=== PATIENT | female | born 1975 | race Asian ===

== ENCOUNTER 2024-05-18 08:41 | Outpatient (AMB) | payer BC, SELFPAY ==
--- NOTE | 2024-05-18 08:44 | MHC.PC.OV ---
Vital Signs 05/18/24 09:01 Height 5 ft 3.78 in Weight 173 lb 8 oz BMI 30.0 BP 110/84 Blood Pressure Location Rt brachial Position Sitting Respiration 14 Pulse 83 Pulse Source Pulse Oximeter Temp 99.5 F Temp Source Oral Pulse Oximetry (%) 98 Oxygen Delivery Method Room Air Intake Visit Reasons: [employer] WORKER-Requesting Physical Exam Intake Note: New patient visit Is last menstrual period known: Yes Last menstrual period: 05/30/24 Allergies amoxicillin Allergy (Severe, Verified 05/18/24 09:06) Anaphylaxis Penicillins Allergy (Severe, Verified 05/18/24 08:57) Anaphylaxis bupropion [From Wellbutrin] Allergy (Unknown, Verified 05/18/24 09:14) Unknown Medication List - Last Reconciled 05/18/24 by Andree Orellana PA-C albuterol sulfate 90 mcg/actuation inhalation [cellimedo inner glow .] escitalopram oxalate 10 mg PO DAILY levocetirizine 5 mg PO QPM Tobacco use date assessed: 05/18/24 Dental Screening Dental Screen Date: 05/18/24 Did you have a dental visit in the last 12 months?: Yes Did you have a dental problem in the last 6 months where you did not have access to dental care?: No Was dental information given to patient?: Patient has dentist HPI B[employer] WORKER-Requesting Physical Exam HPI Details Patient is a 49-year-old female with a significant past medical history of alopecia, generalized anxiety disorder, cold sores and asthma presenting today to [facility] She was last seen by myself at [facility] on 08/19/2023. Psych: Anxiety has been well-controlled on Lexapro 10 mg. She has been significantly cutting back on drinking. Feeling well with this. Does not want help. States that she will go a couple days without drinking and has only 1-2 drinks a night otherwise. CV: Blood pressure today in the office is 110/84. No chest pain, shortness a breath or palpitations. PULM: Her asthma has been well-controlled with Singulair, Xyzal, and albuterol as needed. She used to be on Flovent Mammo: 09/2023- wnl Pap: 09/2023- wnl Colonoscopy: fall- due in 2032 [facility] Medical History (Updated 05/18/24 @ 09:23 by Andree Orellana PA-C) Urachal cyst Moderate asthma without complication H/O food anaphylaxis Generalized anxiety disorder Dermatosis Alopecia Surgical History (Updated 05/18/24 @ 09:09 by Vanesa Toussaint CMA) H/O tooth extraction Family History (Updated 05/18/24 @ 09:11 by Vanesa Toussaint CMA) Other Family history not known due to adoption Social History (Updated 05/18/24 @ 09:09 by Vanesa Toussaint CMA) Housing: House Patient Tobacco Use Status: Never used Tobacco e-Cigarette/Vaping Use: Never Used Use of substances other than those prescribed or required for medical reasons: No service: No Current occupational status: employed Current occupation: business development consultant Current occupational exposures/hazards: No Cognitive needs: No Hearing needs: No Vision needs: Yes (contacts ) Female Reproductive History Menstrual Date of last menstrual period: 05/30/24 Questionnaire PHQ-9 Over the last 2 weeks, how often have you been bothered by any of the following problems? 1. Little interest or pleasure in doing things: not at all 2. Feeling down, depressed, or hopeless: several days 3. Trouble falling or staying asleep, or sleeping too much: several days 4. Feeling tired or having little energy: several days 5. Poor appetite or overeating: not at all 6. Feeling bad about yourself - or that you are a failure or have let yourself or your family down: not at all 7. Trouble concentrating on things, such as reading the newspaper or watching television: not at all 8. Moving or speaking so slowly that other people could have noticed. Or the opposite - being so fidgety or restless that you have been moving around a lot more than usual: not at all 9. Thoughts that you would be better off or of hurting yourself in some way: not at all Total score: 3 Depression Screening Interpretation: Positive Depression Screening Follow-up: Existing condition and In treatment Depression Screening Done: Yes 25629 - PHQ-9 Billing: Yes Source: Developed by Drs. Demarco Cuenca, Savannah Palm, Shay Gray and colleagues, with an educational cheryl from [employer]. Thrive Questionnaire Date Thrive assessed: 05/18/24 I am a: Patient What is your living situation today?: I have a steady place to live Within the past 12 months, did the food you bought not last and you didn't have the money to get more?: Never true Within the past 12 months, did you worry whether your food would run out before you got money to buy more?: Never true Do you have trouble paying for medicines?: No Do you have trouble getting transportation to medical appointments?: No Do you have trouble paying your heating and electricity bill?: No Do you have trouble taking care of your child, family member or friend?: No Do you have trouble with day-to-day activities such as bathing, preparing meals, shopping, managing finances, etc.?: No Are you currently unemployed and looking for a job?: No Are you interested in more education?: No Please select the resources that you would like help with: None Currently or been in a relationship where the following occur: No concerns reported THRIVE Score: 0 AUDIT C Alcohol Use Questionnaire (AUDIT-C) 1. How often do you have a drink containing alcohol?: 4 or more times a week 2. How many drinks containing alcohol do you have on a typical day when you are drinking?: 3 or 4 3. How often do you have six or more drinks on one occasion?: Less than monthly Total Score: 6 Score Reviewed/Action Taken: Yes ROBLES-7 AMB Questionnaire ROBLES-7 Date ROBLES - 7 assessed: 05/18/24 Feeling nervous, anxious, or on edge: 1 = Several days Not being able to stop or control worryin = Not at all Worrying too much about different things: 0 = Not at all Trouble relaxin = Not at all Being so restless that it is hard to sit still: 0 = Not at all Becoming easily annoyed or irritable: 1 = Several days Feeling afraid as if something awful might happen: 0 = Not at all Total ROBLES-7 score (0-4 normal; 5-9 mild; 10-14 moderate; 15-21 severe): 2 Source: Developed by Drs. Demarco Cuenca, Savannah Palm, Shay Gray and colleagues, with an educational cheryl from [employer]. ROBLES-7 Assessment Billing ROBLES-7 Assessment Tool: ROBLES-7 Assessment 52083 Physical exam (Primary Care) Vital Signs: Last Vital Signs Temp 99.5 F 05/18/24 09:01 Pulse 83 05/18/24 09:01 Resp 14 05/18/24 09:01 BP 110/84 05/18/24 09:01 Pulse Ox 98 05/18/24 09:01 Oxygen Delivery Method Room Air 05/18/24 09:01 BMI result Body Mass Index 30.0 Tobacco/Smoking Status: Tobacco use Status Tobacco use date assessed 05/18/24 05/18/24 09:06 Patient Tobacco Use Status Never used Tobacco 05/18/24 09:06 e-Cigarette/Vaping Use Never Used 05/18/24 09:06 PHQ-9: PHQ-9 Score PHQ-9: Total score 3 05/18/24 09:14 Depression Screening Interpretation: Positive Depression Screening Follow-up: Existing condition and In treatment Thrive Assessment: Date of Thrive Assessment Date Thrive assessed 05/18/24 05/18/24 09:14 Currently or been in a relationship where the following occur: No concerns reported Const Orientation/consciousness: patient oriented x3 HENMT Ears: hearing grossly normal bilaterally General nose exam: No nasal polyps present Face and sinus: Yes sinuses nontender Mouth: Normal oral and palatal mucosa present Eyes Pupils: Equal, round and reactive pupils present EOM: EOMs intact bilaterally Neck Neck: Yes full ROM and Yes no lymphadenopathy Thyroid: Thyroid normal Lymphatic: no lymphadenopathy noted Chest Chest palpation & inspection: normal inspection of the chest Resp Auscultation: clear to auscultation bilaterally Cardio Rate: regular rate Rhythm: regular rhythm Heart sounds: S1 normal heart sound present and S2 normal heart sound present Peripheral pulses: Peripheral pulses 2+ throughout GI Other: Soft, nontender Inspection: Yes normal to inspection Palpation (GI): Soft to palpation and Other GI palpation findings present (nontender, no cva tenderness) Auscultation: normoactive bowel sounds Rectal Exam - Female: deferred General: Yes no CVA tenderness Back/Spine/Pelvis Other: Nontender Back: no CVA tenderness Skin General skin exam: no rashes or lesions noted Neuro General: patient oriented x3, gait normal and no focal motor deficits Cranial nerves: Yes Equal, round and reactive pupils present Motor exam (neuro): 5/5 motor strength present throughout Sensory Exam: double simultaneous stimulation for sensation normal Coordination: [id number]-ic-[id number] test normal and Romberg test negative Extrem General: Yes normal to inspection and Yes full ROM Psych Affect: normal affect Attitude: cooperative Thought process: Normal thought process present Thought content: Normal thought content present Insight: Good insight present (Psych) Judgement: Good judgement present (Psych) Assessment and Plan Assessment & Plan (1) Routine general medical examination at a health care facility: Code(s): Z00.00 - Encounter for general adult medical examination without abnormal findings Plan: Health maintenance reviewed. Labs ordered today. We will follow up pending test results. She will get records from [facility]. (2) Generalized anxiety disorder: Code(s): F41.1 - Generalized anxiety disorder Plan: Well-controlled with Lexapro. Orders: Orders Comprehensive [place]. Panel Fast Today F41.1 - Generalized anxiety disorder, Z00.00 - Encounter for general adult medical examination without abnormal findings Complete Blood Count Auto Diff Today F41.1 - Generalized anxiety disorder, Z00.00 - Encounter for general adult medical examination without abnormal findings Lipid Panel Today F41.1 - Generalized anxiety disorder, Z00.00 - Encounter for general adult medical examination without abnormal findings TSH reflex Free T4 Today F41.1 - Generalized anxiety disorder, Z00.00 - Encounter for general adult medical examination without abnormal findings UA CC w/rflx Micro + Cult Today F41.1 - Generalized anxiety disorder, Z00.00 - Encounter for general adult medical examination without abnormal findings Medications: New escitalopram oxalate 10 mg PO DAILY 90 tabs 3RF Coding Level of Care Code Est Pt Prev Care 40-64y(66788) Diagnoses Routine general medical examination at a health care facility Z00.00 Generalized anxiety disorder F41.1 Additional Codes ROBLES-7 Assessment Billing - ROBLES-7 Assessment Tool: ROBLES-7 Assessment 12824 ([id number])
[2024-05-18 09:01] VITALS: BP 110/84; PULSE 83; RESP 14; TEMP 37.5; O2SAT 98
== END 2024-05-18 09:32 | disposition home or self-care (01) ==
PROVIDERS: PCP Physician Assistant; Visit Provider Physician Assistant
DX: Z00.00 Encounter for general adult medical examination without abnormal findings (principal); F41.1 Generalized anxiety disorder
CPT/HCPCS: 99396

== ENCOUNTER 2024-05-19 07:47 | Outpatient (REF) | payer BC, SELFPAY ==
[2024-05-19 11:18] LABS: MANUAL DIFF FLAG NO
[2024-05-19 11:30] LABS: Appearance Urine Turbid; Color Urine Yellow; Glucose Urine UA Negative (Negative); Leukocyte Esterase Urine Negative (Negative); Nitrite Urine Negative (Negative); PH 5.5 (5.0-9.0); Specific Gravity - Urine 1.025 (1.005-1.025); Urine Blood Negative (Negative); Urine Ketones Negative (Negative); Urine Protein Trace mg/dL (Neg-Trace)
[2024-05-19 11:36] LABS: Basophils Absolute Auto 0.1 X10*3/uL (0.0-0.2); Basophils Percent Auto 0.8 % (0-2); Eosinophils Absolute Auto 0.4 X10*3/uL (0.0-0.4); Eosinophils Percent Auto 5.5 % (0-4); Hematocrit 44.1 % (37.0-47.0); Hemoglobin 15.1 g/dl (12.0-16.0); Imm Gran Abs Auto 0.02 X10*3/uL (0.00-0.03); Imm Gran Pct Auto 0.3 % (0.0-0.4); Lymphocytes Absolute Auto 1.6 X10*3/uL (1.2-4.9); Lymphocytes Percent Auto 21.1 % (20-40); Mean Corpuscular HGB Conc 34.2 g/dl (31.0-35.0); Mean Corpuscular Hemoglobin 30.3 pg (27.0-33.0); Mean Corpuscular Volume 88.4 fL (80.0-98.0); Mean Platelet Volume 11.3 fL (9.4-12.3); Monocytes Absolute Auto 0.4 X10*3/uL (0.1-1.2); Monocytes Percent Auto 5.5 % (2-11); Neutrophils Percent Auto 66.8 % (45-73); Platelet Count 249 X10*3/uL (160-400); Red Blood Count 4.99 X10*6/uL (4.20-5.50); Red Cell Distribution Width 12.1 % (11.0-16.0); White Blood Count 7.4 X10*3/uL (4.8-10.8)
[2024-05-19 12:07] LABS: Alanine Aminotransferase 12 U/L (0-31); Albumin Level 4.2 g/dL (3.5-5.0); Alkaline Phosphatase 63 U/L (39-117); Anion Gap 12 (12-20); Aspartate Amino Transferase 19 U/L (5-31); Bilirubin Total 0.6 mg/dL (0.0-1.0); Blood Urea Nitrogen 11 mg/dL (9-16); Calcium 9.2 mg/dL (8.4-10.2); Carbon Dioxide 22 mmol/L (22-29); Chloride 106 mmol/L (96-108); Cholesterol 163 mg/dL (<200); Estimated Glomerular Filt Rate > 60; Glucose Fasting 83 mg/dL (60-99); HDL Cholesterol 54 mg/dL (>40); LDL Cholesterol Calculated 66 mg/dL (<100); Potassium 3.8 mmol/L (3.3-5.1); Sodium 136 mmol/L (135-145); Total Protein 7.3 g/dL (6.5-8.0); Triglycerides 216 mg/dL (<150)
[2024-05-19 12:10] LABS: TSH reflex Free T4 3.19 uIU/mL (0.32-4.0)
== END 2024-05-19 07:48 | disposition home or self-care (01) ==
LOC: HO.WFDLDS 07:47
PROVIDERS: Visit Provider Physician Assistant
DX: Z00.00 Encounter for general adult medical examination without abnormal findings (principal); F41.1 Generalized anxiety disorder
CPT/HCPCS: 36415; 80053; 80061; 81003; 84443; 85025

== ENCOUNTER 2025-05-31 14:27 | Outpatient (AMB) | payer BC, SELFPAY ==
[2025-05-31 14:29] VITALS: BP 114/82; PULSE 88; RESP 12; TEMP 36.8; O2SAT 99; BMI 30.6
--- NOTE | 2025-05-31 14:29 | MHC.PC.OV ---
Vital Signs 05/31/25 14:29 Height 5 ft 3.78 in Weight 177 lb BMI 30.6 BP 114/82 Blood Pressure Location Lt brachial Position Sitting Respiration 12 Pulse 88 Pulse Source Pulse Oximeter Temp 98.3 F Temp Source Oral Pulse Oximetry (%) 99 Oxygen Delivery Method Room Air Intake Visit Reasons: ANNUAL PE Intake Note: Physical Transportation Agent Required: No Allergies amoxicillin Allergy (Severe, Verified 05/31/25 14:31) Anaphylaxis Penicillins Allergy (Severe, Verified 05/31/25 14:31) Anaphylaxis bupropion (From Wellbutrin) Allergy (Unknown, Verified 05/31/25 14:31) Unknown Tobacco use date assessed: 05/31/25 Dental Screening Dental Screen Date: 05/31/25 Did you have a dental visit in the last 12 months?: Yes Did you have a dental problem in the last 6 months where you did not have access to dental care?: No Was dental information given to patient?: Patient has dentist HPI ANNUAL PE HPI Details Patient is a 50-year-old female with a significant past medical history of alopecia, generalized anxiety disorder, cold sores and asthma presenting today for a physical exam. Psych: Anxiety has been well-controlled on Lexapro 10 mg. She is feeling well with this. CV: Blood pressure today in the office is 114/82. No chest pain, shortness a breath or palpitations. GI: She does get diarrhea with eating any dairy products. She states that she would be interested in seeing Allergy and immunology when her old dry paste supervisor opens up his new facility. She says that she may need a referral. She is interested to see if she is allergic to dairy as lactose pills do not appear to be effective. She does not have diarrhea when she does not eat dairy. She is up-to-date on her colonoscopy. There was no blood in her stool or weight loss. This has been a longstanding issue. PULM: Her asthma has been well-controlled with Singulair, Xyzal, and albuterol as needed. She used to be on Flovent Mammo: 12/02/2024- wnl Pap: 09/2023- wnl Colonoscopy: fall- due in 2032 [facility] Medical History (Updated 05/31/25 @ 14:58 by Andree Orellana PA-C) Urachal cyst Moderate asthma without complication H/O food anaphylaxis Generalized anxiety disorder Dermatosis Alopecia Surgical History (Updated 05/18/24 @ 09:09 by Vanesa Toussaint CMA) H/O tooth extraction Family History (Updated 05/18/24 @ 09:11 by Vanesa Toussaint CMA) Other Family history not known due to adoption Social History (Updated 05/18/24 @ 09:09 by Vanesa Toussaint CMA) Housing: House Patient Tobacco Use Status: Never used Tobacco e-Cigarette/Vaping Use: Never Used service: No Current occupational status: employed Current occupation: mobile sales consultant Current occupational exposures/hazards: No Cognitive needs: No Hearing needs: No Vision needs: Yes (contacts ) Questionnaire PHQ-9 Over the last 2 weeks, how often have you been bothered by any of the following problems? 1. Little interest or pleasure in doing things: not at all 2. Feeling down, depressed, or hopeless: several days 3. Trouble falling or staying asleep, or sleeping too much: several days 4. Feeling tired or having little energy: more than half the days 5. Poor appetite or overeating: several days 6. Feeling bad about yourself - or that you are a failure or have let yourself or your family down: not at all 7. Trouble concentrating on things, such as reading the newspaper or watching television: not at all 8. Moving or speaking so slowly that other people could have noticed. Or the opposite - being so fidgety or restless that you have been moving around a lot more than usual: not at all 9. Thoughts that you would be better off or of hurting yourself in some way: not at all Total score: 5 Source: Developed by Drs. Demarco Cuenca, Savannah Palm, Shay Gray and colleagues, with an educational cheryl from [employer]. Thrive Questionnaire Date Thrive assessed: 05/31/25 I am a: Patient What is your living situation today?: I have a steady place to live Within the past 12 months, did the food you bought not last and you didn't have the money to get more?: Never true Within the past 12 months, did you worry whether your food would run out before you got money to buy more?: Never true Do you have trouble paying for medicines?: No Do you have trouble getting transportation to medical appointments?: No Do you have trouble paying your heating and electricity bill?: No Do you have trouble taking care of your child, family member or friend?: No Do you have trouble with day-to-day activities such as bathing, preparing meals, shopping, managing finances, etc.?: No Are you currently unemployed and looking for a job?: No Are you interested in more education?: No Please select the resources that you would like help with: None Currently or been in a relationship where the following occur: No concerns reported THRIVE Score: 0 AUDIT C Alcohol Use Questionnaire (AUDIT-C) 1. How often do you have a drink containing alcohol?: 4 or more times a week 2. How many drinks containing alcohol do you have on a typical day when you are drinking?: 3 or 4 3. How often do you have six or more drinks on one occasion?: Monthly Total Score: 7 ROBLES-7 AMB Questionnaire ROBLES-7 Date ROBLES - 7 assessed: 05/18/24 Feeling nervous, anxious, or on edge: 1 = Several days Not being able to stop or control worryin = Not at all Worrying too much about different things: 1 = Several days Trouble relaxin = Several days Being so restless that it is hard to sit still: 1 = Several days Becoming easily annoyed or irritable: 1 = Several days Feeling afraid as if something awful might happen: 0 = Not at all Total ROBLES-7 score (0-4 normal; 5-9 mild; 10-14 moderate; 15-21 severe): 5 Source: Developed by Drs. Demarco Cuenca, Savannah Palm, Shay Gray and colleagues, with an educational cheryl from [employer]. Physical exam (Primary Care) Vital Signs: Last Vital Signs Temp 98.3 F 05/31/25 14:29 Pulse 88 05/31/25 14:29 Resp 12 05/31/25 14:29 BP 114/82 05/31/25 14:29 Pulse Ox 99 05/31/25 14:29 Oxygen Delivery Method Room Air 05/31/25 14:29 BMI result Body Mass Index 30.6 Tobacco/Smoking Status: Tobacco use Status Tobacco use date assessed 05/31/25 05/31/25 14:34 Patient Tobacco Use Status Never used Tobacco 05/31/25 14:34 e-Cigarette/Vaping Use Never Used 05/31/25 14:34 PHQ-9: PHQ-9 Score PHQ-9: Total score 5 05/31/25 14:41 Thrive Assessment: Date of Thrive Assessment Date Thrive assessed 05/31/25 05/31/25 14:34 Currently or been in a relationship where the following occur: No concerns reported Const Orientation/consciousness: patient oriented x3 HENMT Ears: hearing grossly normal bilaterally and TM's normal bilaterally General nose exam: No nasal polyps present Face and sinus: Yes sinuses nontender Mouth: Normal oral and palatal mucosa present Eyes Pupils: Equal, round and reactive pupils present EOM: EOMs intact bilaterally Neck Neck: Yes full ROM and Yes no lymphadenopathy Thyroid: Thyroid normal Chest Chest palpation & inspection: normal inspection of the chest Resp Auscultation: clear to auscultation bilaterally Cardio Rate: regular rate Rhythm: regular rhythm Heart sounds: S1 normal heart sound present and S2 normal heart sound present Peripheral pulses: Peripheral pulses 2+ throughout GI Other: Soft, nontender Auscultation: normal bowel sounds Rectal Exam - Female: deferred General: Yes no CVA tenderness Back/Spine/Pelvis Other: Nontender Back: no CVA tenderness Skin General skin exam: no rashes or lesions noted Neuro General: patient oriented x3, gait normal, CN's II-XI intact bilaterally and deep tendon reflexes 2+ bilaterally Cranial nerves: Yes Equal, round and reactive pupils present Motor exam (neuro): 5/5 motor strength present throughout Sensory Exam: double simultaneous stimulation for sensation normal Coordination: [id number] test normal and Romberg test negative Extrem General: Yes normal to inspection and Yes full ROM Psych Affect: normal affect Attitude: cooperative Thought process: Normal thought process present Thought content: Normal thought content present Insight: Good insight present (Psych) Judgement: Good judgement present (Psych) Coding Level of Care Code Est Pt Prev Care 40-64y(71893) Diagnoses Encounter for routine history and physical examination Z00.00 Diarrhea R19.7 Assessment & Plan Assessment & Plan (1) Encounter for routine history and physical examination: Code(s): Z00.00 - Encounter for general adult medical examination without abnormal findings Plan: Health maintenance reviewed. Labs ordered (2) Diarrhea: Code(s): R19.7 - Diarrhea, unspecified Category: Medical Plan: As above. She will let me know if anything worsens or changes. Advised to avoid dairy. She will contact me when she wants to see the dry paste supervisor. Orders: Orders Hemoglobin A1c 05/31/25 F41.1 - Generalized anxiety disorder, R73.01 - Impaired fasting glucose, Z00.00 - Encounter for general adult medical examination without abnormal findings UA CC w/rflx Micro + Cult 05/31/25 F41.1 - Generalized anxiety disorder, R30.0 - Dysuria, Z00.00 - Encounter for general adult medical examination without abnormal findings Microalbumin, Random (w Creat) 05/31/25 F4.1 - Generalized anxiety disorder, Z00.00 - Encounter for general adult medical examination without abnormal findings Vitamin B12 and Folate 05/31/25 F4.1 - Generalized anxiety disorder, Z00.00 - Encounter for general adult medical examination without abnormal findings Basic Metabolic Panel 05/31/25 F4.1 - Generalized anxiety disorder, Z00.00 - Encounter for general adult medical examination without abnormal findings Complete Blood Count Auto Diff 05/31/25 F41.1 - Generalized anxiety disorder, Z00.00 - Encounter for general adult medical examination without abnormal findings Lipid Panel 05/31/25 F41.1 - Generalized anxiety disorder, Z00.00 - Encounter for general adult medical examination without abnormal findings Liver Panel 05/31/25 F4.1 - Generalized anxiety disorder, Z00.00 - Encounter for general adult medical examination without abnormal findings TSH reflex Free T4 05/31/25 F4.1 - Generalized anxiety disorder, Z00.00 - Encounter for general adult medical examination without abnormal findings Medications: Refilled escitalopram oxalate 10 mg PO DAILY 90 tabs 3RF
--- OUTSIDE RECORDS SUMMARY | 2025-05-31 18:13 | XMS_ITS | Encounter Summary ---
Author Organization [facility] Address [address] [place] [address] Care Team Providers Care Software Test And Validation Engineer Name Role Phone Patricia Mederos MD Primary Care Provider [phone] Encounter Details Date Type Department Care Team (Late st Contact Info) Description 07/16/2017 Scanned Document [facility] [address] [facility] [address] [place] [address] Provider, Generic Social History Tobacco Use Types Packs/Day Years Used Date Smoking Tobacco: Never Alcohol Use Standard Drinks/Week Comments Yes 0 (1 standard drink = 0.6 oz pur e alcohol) social use Comments No Sex and Gender Information Value Date Recorded Sex Assigned at Not on file Legal Sex Female 12:49 AM EDT Gender Identity Not on file Sexual Orientation Not on file Occupation Industry Job Start Date Job End Date [employer] Not on file Not on file Not on file documented as of this encounter Plan of Treatment Not on file documented as of this encounter Visit Diagnoses Not on filedocumented in this encounter Care Teams Software Test And Validation Engineer Relationship Specialty Start Date End Date Patricia Mederos MD [address] [place] [address] [address] [place], [place] [id number] PCP - General 05/28/15 03/20/19 documented as of this encounter
--- OUTSIDE RECORDS SUMMARY | 2025-05-31 18:13 | XMS_ITS | Encounter Summary ---
Author Organization [facility] Address [address] [place] [address] Care Team Providers Care Forensic Accountant Name Role Phone Patricia Mederos MD Primary Care Provider [phone] Encounter Details Date Type Department Care Team ([facility] st Contact Info) Description 07/23/2018 Scanned Document [facility] [address] [facility] [address] [place] [address] Provider, Generic Social History Tobacco Use Types Packs/Day Years Used Date Smoking Tobacco: Never Smokeless Tobacco: Never Alcohol Use Standard Drinks/Week Comments Yes 0 (1 standard drink = 0.6 oz pur e alcohol) social use Comments No Sex and Gender Information Value Date Recorded Sex Assigned at Not on file Legal Sex Female 12:49 AM EDT Gender Identity Not on file Sexual Orientation Not on file Occupation Industry Job Start Date Job End Date [employer] Not on file Not on file Not on file documented as of this encounter Plan of Treatment Not on file documented as of this encounter Procedures Procedure Name Priority Date/Time Associated Diagnosis Comments IMAGING BREAST/BX/MAMMO 07/23/2018 documented in this encounter Results * IMAGING BREAST/BX/MAMMO (07/23/2018) Anatomical Region Laterality Modality Other Narrative 07/23/2018 Ordered by an unspecified provider. us Generic Provider IMG LEGACY PROCEDURES Edited Re sult - Final documented in this encounter Visit Diagnoses Not on filedocumented in this encounter Care Teams Forensic Accountant Relationship Specialty Start Date End Date Patricia Mederos MD [address] [facility] [address] [place] [address] [phone] PCP - General 05/28/15 03/20/19 documented as of this encounter
--- OUTSIDE RECORDS SUMMARY | 2025-05-31 18:13 | XMS_ITS | Encounter Summary ---
Author Organization [facility] Address [address] [place] [address] Care Team Providers Care Oliving Machine Operator Name Role Phone Patricia Mederos MD Primary Care Provider [phone] Encounter Details Date Type Department Care Team (Late st Contact Info) Description 02/10/[address] [facility] 10 100 [facility] 203 [place] [address] Provider, External, [address] [place] [address] Social History Tobacco Use Types Packs/Day Years [...] Industry Job Start Date Job End Date [employer] Not on file Not on file Not on file documented as of this encounter Plan of Treatment Not on file documented as of this encounter Visit Diagnoses Not on filedocumented in this encounter Care Teams Oliving Machine Operator Relationship Specialty Start Date End Date Patricia Mederos MD 100 [facility] [address] [place] [address] PCP - General 05/28/15 03/20/19 documented as of this encounter
--- OUTSIDE RECORDS SUMMARY | 2025-05-31 18:13 | XMS_ITS | Encounter Summary ---
Author Organization [facility] Address [address] [place] [address] Care Team Providers Care Internet Security Specialist Name Role Phone Patricia Mederos MD Primary Care Provider [phone] Encounter Details Date Type Department Care Team ([facility] st Contact Info) Description 07/23/2018 Scanned Document [facility] [address] [facility] [address] [place] [address] Provider, Generic Social History Tobacco [...] Start Date Job End Date [employer] Not on file Not on file Not [...] on filedocumented in this encounter Care Teams Internet Security Specialist Relationship Specialty Start Date End Date Patricia Mederos MD 100 [facility] [address] [place] [phone] PCP - General 05/28/15 03/20/19 documented as of this encounter
--- OUTSIDE RECORDS SUMMARY | 2025-05-31 18:13 | XMS_ITS | Clinical Summary ---
Author Organization [facility] Address [address] [place] [address] Care Team Providers Care Lock Tender Chief Operator Name Role Phone Unavailable Primary Care Provider Unavailabl e Allergies Active Allergy Reactions Criticality Noted Date Comments Other Unknown/Patient and Family Unable to Define Medium 11/09/2015 [place] nuts Penicillins Unknown/Patient and Family Unable to Define Medium 11/09/2015 Medications hydrocortisone 1 % cream Apply topically 2 (two) times a day. Active cholecalciferol (VITAMIN D3) 1000 UNITS tablet Take 2,000 Units by mouth daily. Active multivitamin (THERAGRAN) Tab Take 1 tablet by mouth daily. Active cetirizine (ZyrTEC) 10 MG tablet Take 10 mg by mouth daily. Active albuterol (PROAIR RESPICLICK) 108 (90 BASE) MCG/ACT inhaler Inhale 1 puff 4 times daily (every 6 hours) as needed. Active FLUoxetine (PROzac) 20 MG capsuleIndicati ons:Anxiety Take 1 capsule (20 mg total) by mouth daily. 30 capsule 3 8 Active EPINEPHrine 0.3 mg/0.3 mL IJ auto-injectionI ndications:Josh rgic reaction, subsequent encounter Inject 0.3 mL (0.3 mg total) into the shoulder, thigh, or buttocks once as needed for allergic reaction. 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 Resolved Problems Problem Noted Date Diagnosed Date Resolved Date Pain in soft tissues of limb 12/26/2014 07/14/2016 Low back pain 12/26/2014 07/14/2016 Immunizations Immunization Administration Dates Next Due TD Preservative Free Tdap 07/16/2017 Social History Tobacco Use Types Packs/Day Years [...] Industry Job Start Date Job End Date [employer] Not on file Not on file Not on file Last Filed Vital Signs Vital Sign Reading Time Taken Comments Blood Pressure 116/80 07/30/2018 2:31 PM EST Pulse 56 07/30/2018 2:31 PM EST Temperature 37 C (98.6 F) 01/08/2018 3:33 PM EDT Respiratory Rate 12 07/30/2018 2:31 PM EST Oxygen Saturation 99% 07/30/2018 2:31 PM EST Inhaled Oxygen Concentration - - Weight 68.9 kg (152 lb) 07/30/2018 2:31 PM EST Height 162.6 cm (5' 4 ) 07/30/2018 2:31 PM EST Body Mass Index 26.09 07/30/2018 2:31 PM EST Plan of Treatment Health Maintenance Due Date Last Done Comments Hepatitis C Virus Screening 1977 HIV Screening 1990 Hepatitis B Vaccines (1 of 3 - 19+ 3-dose series) 1996 Pneumococcal Vaccine: Pediat karri (0-5 Years) and At-Risk Patients (6 to 49 Years) (1 of 2 - PCV) 1996 Pap Smear (Ages 21-65) 1998 Mammogram 07/23/2020 07/23/2018, 05/2018, 05/01/2017, Additional history exists Colonoscopy 2022 Influenza Vaccine 04/14/2025 COVID-19 Vaccine ( - 2023-2 5 season) 2025 DTaP/Tdap/Td Vaccines (2 - T d or Tdap) 07/16/2027 07/16/2017, Procedures Procedure Name Priority Date/Time Associated Diagnosis Comments IMAGING BREAST/BX/MAMMO 07/23/2018 from Last 3 Months or Most Recently Relevant to Health Maintenance Results * IMAGING BREAST/BX/MAMMO (07/23/2018) Anatomical Region Laterality Modality Other Narrative 07/23/2018 Ordered by an unspecified provider. us Generic Provider IMG LEGACY PROCEDURES Edited Re sult - Final from Last 3 Months or Most Recently Relevant to Health Maintenance [facility]
--- OUTSIDE RECORDS SUMMARY | 2025-05-31 18:13 | XMS_ITS | Encounter Summary ---
Author Organization [facility] Address [address] [place] [address] Care Team Providers Care Regional Director Name Role Phone Patricia Mederos MD Primary Care Provider [phone] Encounter Details Date Type Department Care Team (Late st Contact Info) Description 05/01/2017 Scanned Document [facility] [address] [place] [address] Provider, Generic Social History Tobacco Use [...] Industry Job Start Date Job End Date [facility] Not on file Not on file Not on file documented as of this encounter Plan of Treatment Not on file documented as of this encounter Procedures Procedure Name Priority Date/Time Associated Diagnosis Comments IMAGING BREAST/BX/MAMMO 05/01/2017 IMAGING BREAST/BX/MAMMO 05/01/2017 documented in this encounter Results * IMAGING BREAST/BX/MAMMO (05/01/2017) Anatomical Region Laterality Modality Other Narrative 05/01/2017 Ordered by an unspecified provider. us Generic Provider IMG LEGACY PROCEDURES Edited Re sult - Final * IMAGING BREAST/BX/MAMMO (05/01/2017) Anatomical Region Laterality Modality Other Narrative 05/01/2017 Ordered by an unspecified provider. us Generic Provider IMG LEGACY PROCEDURES Edited Re sult - Final documented in this encounter Visit Diagnoses Not on filedocumented in this encounter Care Teams Regional Director Relationship Specialty Start Date End Date Patricia Mederos MD 100 [facility] 203 [place] [address] PCP - General 05/28/15 03/20/19 documented as of this encounter
--- OUTSIDE RECORDS SUMMARY | 2025-05-31 18:13 | XMS_ITS | Encounter Summary ---
Author Organization [facility] Address [address] [place] [address] Care Team Providers Care Rn X Ray Name Role Phone Patricia Mederos MD Primary Care Provider [phone] Encounter Details Date Type Department Care Team (Late st Contact Info) Description 03/08/2014 Scanned Document [address] [address] Provider, Generic Social History Tobacco Use Types Packs/Day Years Used Date Smoking Tobacco: Never Assessed Comments Unknown Sex and Gender Information Value Date Recorded Sex Assigned at Not on file Legal Sex Female 12:49 AM EDT Gender Identity Not on file Sexual Orientation Not on file documented as of this encounter Plan of Treatment Not on file documented as of this encounter Procedures Procedure Name Priority Date/Time Associated Diagnosis Comments ULTRASOUND EXTERNAL RESULT 03/08/2014 documented in this encounter Results * ULTRASOUND EXTERNAL RESULT (03/08/2014) Anatomical Region Laterality Modality Ultrasound Narrative 07/22/2016 9:33 AM EST Ordered by an unspecified provider. us Generic Provider IMG US ORDERABLES Final Result documented in this encounter Visit Diagnoses Not on filedocumented in this encounter Care Teams Rn X Ray Relationship Specialty Start Date End Date Patricia Mederso MD [address] [place] [address] [address] [place] [address] PCP - General 05/28/15 03/20/19 documented as of this encounter
== END 2025-05-31 15:02 | disposition home or self-care (01) ==
LOC: HO.HMCFM 14:28
PROVIDERS: PCP Physician Assistant; Visit Provider Physician Assistant
DX: Z00.00 Encounter for general adult medical examination without abnormal findings (principal); R19.7 Diarrhea, unspecified

== ENCOUNTER 2025-06-22 08:30 | Outpatient (REF) | payer BC, SELFPAY ==
[2025-06-22 11:31] LABS: Appearance Urine Turbid; Glucose Urine UA Negative (Negative); PH 5.5 (5.0-9.0); Specific Gravity - Urine 1.025 (1.005-1.025)
[2025-06-22 11:36] LABS: MANUAL DIFF FLAG NO
[2025-06-22 11:48] LABS: Hematocrit 42.0 % (37.0-47.0); Hemoglobin 14.3 g/dl (12.0-16.0); Imm Gran Abs Auto 0.02 X10*3/uL (0.00-0.03); Imm Gran Pct Auto 0.3 % (0.0-0.4); Lymphocytes Absolute Auto 1.1 X10*3/uL (1.2-4.9); Mean Corpuscular HGB Conc 34.0 g/dl (31.0-35.0); Mean Corpuscular Hemoglobin 30.6 pg (27.0-33.0); Mean Corpuscular Volume 89.9 fL (80.0-98.0); NRBC Abs Auto 0.000 X10*3/uL (0.0-0.012); NRBC Pct Auto 0.0 /100WBC (0.0-0.2); Platelet Count 281 X10*3/uL (160-400); Red Blood Count 4.67 X10*6/uL (4.20-5.50); White Blood Count 6.9 X10*3/uL (4.8-10.8)
[2025-06-22 12:03] LABS: Alanine Aminotransferase 27 U/L (0-31); Albumin Level 4.5 g/dL (3.5-5.0); Alkaline Phosphatase 72 U/L (39-117); Anion Gap 12 (12-20); Aspartate Amino Transferase 34 U/L (5-31); Blood Urea Nitrogen 8 mg/dL (9-16); Calcium 9.0 mg/dL (8.4-10.2); Carbon Dioxide 24 mmol/L (22-29); Chloride 105 mmol/L (96-108); Cholesterol 214 mg/dL (<200); Estimated Glomerular Filt Rate > 60; HDL Cholesterol 54 mg/dL (>40); Potassium 3.8 mmol/L (3.3-5.1); Sodium 137 mmol/L (135-145); Total Protein 7.0 g/dL (6.5-8.0); Triglycerides 140 mg/dL (<150)
[2025-06-22 12:20] LABS: Microalbum/Creatinine Ratio Ur 4.6 ug/mg cr (<30)
[2025-06-22 12:33] LABS: Folate 11.5 ng/mL (> or = 4.0); Vitamin B12 240 pg/mL (200-900)
== END 2025-06-22 08:31 | disposition home or self-care (01) ==
LOC: HO.WFDLDS 08:30
PROVIDERS: Visit Provider Physician Assistant
DX: Z00.00 Encounter for general adult medical examination without abnormal findings (principal); F41.1 Generalized anxiety disorder; R73.01 Impaired fasting glucose; R30.0 Dysuria; Z13.6 Encounter for screening for cardiovascular disorders
CPT/HCPCS: 36415; 80048; 80061; 80076; 81003; 82043; 82570; 82607; 82746; 83036; 84443; 85025

== ENCOUNTER 2025-08-03 08:02 | Outpatient (REF) | payer BC, SELFPAY ==
--- OUTSIDE RECORDS SUMMARY | 2025-08-03 08:21 | XMS_ITS | Encounter Summary ---
Author Organization [facility] Address [address] [place] [address] Care Team Providers Care Wheat And Oats Flake Miller Name Role Phone Patricia Mederos MD Primary Care Provider [phone] Encounter Details Date Type Department Care Team (Late st Contact Info) Description 07/16/2017 Scanned Document [facility] [place] 10 100 [facility] 203 [place] [address] Provider, Generic Social History Tobacco [...] Industry Job Start Date Job End Date [employer] [facility] Not on file Not on file Not on file documented as of this encounter Plan of Treatment Not on file documented as of this encounter Visit Diagnoses Not on filedocumented in this encounter Care Teams Wheat And Oats Flake Miller Relationship Specialty Start Date End Date Patricia Mederos MD [address] [place] [address] [address] [place], [place] [id number] PCP - General 05/28/15 03/20/19 documented as of this encounter
--- OUTSIDE RECORDS SUMMARY | 2025-08-03 08:21 | XMS_ITS | Data Portability ---
Author Organization [facility] Address [address] [place] [address] Assessment No assessment recorded. Plan of Treatment Reminders Order Date Submit Date Provider Last Modified By Organization Details Last Modified Time Details Appointments None record ed. Lab None record ed. Referral None record ed. Procedures None record ed. Surgeries None record ed. Imaging XR, knee, 4 or more view - New left knee, room UC4 025 04/10/20 25 [facility] 1 [facility], [address] [facility], [address], [place], [address], 5 14:27:27 Medication Orders None record ed. Patient TargetsNo targets recorded. Patient InstructionsNo instructions recorded. Reason for Referral None Reported. Results Created Date Observation Date Name Description Value Unit Range Abnormal Flag Note LastModifiedBy Organization Detail LastModifiedTime 04/10/2004/10/2025 XR, knee, 4 or more view http:/ [email or web address] ?Encry pted=s hAaTro YD8dLq bEUv6g %2BXZw aYqtaq 0bqfl% 2Fg9IQ a4ajBk vP9nXo QUaueC m3YtLR FvZlgJ JJ8mAn HZtai3 3c6462 AC0Klb n%2BMU auhKiQ trMwF INTERFACE [facility] [address], [place], [address], 04/10/2025 14:24:29 04/10/20 25 04/10/2025 XR, knee, 4 or more view http:/ [email or web address] ?Encry pted=s hACiarano YD8dLq bEUv6g %2BXZw aYqtaq 0bqfl% 2Fg9IQ a4ajBk vP9nXo QUaueC m3YtLR FvZlgJ JJ8mAn HZtai3 3e8554 AC0Klb n%2BMU auhKiQ trMwF INTERFACE [facility] [address] [facility] [address], [place], [address], 04/10/2025 14:24:30 Result Notes Documentation Provider Name and Address Organization Details Recorded Time Xr, Knee, 4 Or More View : [email or web address] Encrypted=euPaUasIM6jJanC Uv6g%0TYIjfOjxti9fsfk%2Fg 7MJn0tsWtcG0mCtZBdxmAo7Bq KBDzLmbDZP5jBlQKovj91j988 5YZ7Kjhq%2BMUauhKiQtrMwF Not Available [facility] 04/10/2025 14:2 4:29 Xr, Knee, 4 Or More View : [email or web address] Encrypted=pwVnDugBQ8vHhdZ Uv6g%8VYCjgEzicm6nxwg%2Fg 6XRa7btDfqI3kObUTcnzNj1Di PKMtXdqJJD1hOnJUpst81m523 0AW3Qilc%2BMUauhKiQtrMwF Not Available [facility] 04/10/2025 14:2 4:31 Problems Name Problem SNOMED Code Status Onset Date Resolution Date Notes Provider Name and Address Organization Details Recorded Time Injury of left knee 179892391420896 Active 2024 FRANCIA Carson [facility] 14:15:20 Strain of knee 134924265876 Active 2024 FRANCIA Carson [facility] 14:56:17 Problem Notes None recorded. Medical Equipment None Reported. Allergies Allergen ID Allergen Name Allergen Category Reaction Reaction Severity Criticality Documentation Date Start Date Code Code System Note Provider Name and Address Organization Details Recorded Time 440046 pine nut extract food Not available Not available Not available 04/10/2025 03723 38 RxNorm AMEYA crystal [facility] 14:14:26 Medications Name Sig Start Date Stop Date Status Note LastModified by Organization Details LastModified Time clobetasol 0.05 % topical cream APPLY 1 GRAMS (SMALL AMOUNT) TWICE WEEKLY (THURSDAY & THURSDAY) TO AFFECTED AREA. active Not Available Not Available No t Available triamcinolone acetonide 0.1 % topical cream APPLY TO AREAS OF [place] ON FACE AND NECK IN THE MORNING AND IN THE EVENING FOR 7 DAYS, AVOID EYES active Not Available Not Available No t Available escitalopram 10 mg tablet TAKE 1 TABLET BY MOUTH DAILY active Not Available Not Available No t Available albuterol sulfate active Not Available Not Available Not Available Zyrtec 10 mg capsule Take by oral route. active Not Available Not Available No t Available Vitals Date Recorded Body height Body mass index (BMI) Body weight Provider Name and Address Organization Details Last Updated DateTime 04/10/2025 162.56 cm 29.2 kg/m2 67813.7 g AMEYA [employer] [facility] 04/10/2025 14:14:17 Social History None recorded. Functional Status None recorded. Mental Status None recorded. Family History Nothing Reported. Medical History No medical history recorded. Gynecological HistoryNo gynecological history recorded. Obstetrics History GPAL:G 0 P 0 0 0 0 Past Encounters Encounter ID Performer Location Encounter Start Date Encounter Closed Date Diagnosis/Indication Diagnosis SNOMED-CT Code Diagnosis ICD10 Code Diagnosis IMO Codes Diagnosis Note [id number] ARLENE Lyle [address] [place] [address] 04/10/2025 12:55:31 04/18/2025 10:52:51 Injury of left knee 3283924893 80083 S89.92XA 7824533 Strain of knee 701086281 1 03 S86.912A 94325643 Health Concerns Section Related Observation LastModified by Organization Detai ls LastModified Time None Recorded Concern Status LastModified by Organization Details LastModified Time None Recorded Advance Directives Directive None Recorded Payers Insurance Date Sequence Insurance Name Policy Number Policy Aguiar Covered Member ID Aguiar Member ID Guarantor Name 04/26/2025 1 [id number]) [id number] Radha Otero [id number] Radha Otero Notes Date Note Type Note Provider Name and Address Organization Details Recorded Time 04/10/2025 text/html I am seeing the patient today under the supervision of Dr. Espinosa who was available but who did not see the patient. History is taken from the patient HPI: Patient here today 50-year-old female concerning left knee pain. She tripped and fell at the gym. She is complaining of posterior lateral knee pain. Describes a dull ache. Has been using a brace and anti-inflammatories. She has a history of knee subluxation in her youth. Not waking her up at night. She got a elastic brace from [facility] which she tells me helps a tiny bit. She presents to the orthopedic urgent care clinic today for further evaluation and care. Past family, medical, social history and review of systems has been reviewed, updated and is located in the patient s chart. EXAMINATION: Left knee ROM is full, stability intact both anterior, posterior, and varus/valgus stress at both 0 and 30 degrees of flexion. No meniscal tenderness. Negative Fidelina's maneuver. No crepitus, no effusion, 5/5 strength. Patient has pain to palpation over her left lateral collateral ligament. There was no opening with stress testing at 0 and 20 degrees. Negative anterior drawer. X-RAYS: Were ordered, obtained and independently reviewed today in our office. There were 4 views of the left knee performed in the findings are as follows: Shows no acute bony pathology or process. No significant osteoarthritis. She has well-preserved joint spaces. DIAGNOSIS: Left knee lateral collateral ligament strain MEDICAL DECISION MAKING: Patient is educated. She should continue to ice. Recommend anti-inflammatories. She would also benefit from a hinged knee brace. The patient is ambulatory, but has weakness and/or instability of their extremity which requires stabilization from this semi-rigid/rigid orthosis to improve their function. Verbal and written instructions for the use and application of this item were given. Patient was instructed that should the brace result in increased pain, decreased sensation, increased swelling or an overall worsening of their medical condition, to please contact our office immediately. Meloxicam should be taken as one tab po daily with food. Risks and benefits of anti-inflammatories discussed with the patient at this time. Patient may follow-up with us as needed. Today's visit involved examining the patient, reviewing the history, reviewing the radiographic studies, counseling the patient regarding treatment options, and the administrative tasks including placing orders, preparing patient information and home handouts and preparing the visit note. This note was generated with [facility] speech recognition seasonal package handler dictation software. Please excuse any errors that may have been overlooked during review of this note. Sometimes, these errors may affect the content or meaning of a given sentence. Please call for corrections. Maddy Le PA-C [address] [place] [address] [address], [place], [address], [facility] 04/10/2025 15:04:07 OBGyn Episode No OBEpisode recorded.
--- OUTSIDE RECORDS SUMMARY | 2025-08-03 08:21 | XMS_ITS | Encounter Summary ---
Author Organization [facility] Address [address] [place] [address] Care Team Providers Care Perforator Operator Oil Well Name Role Phone Patricia Mederos MD Primary Care Provider [phone] Encounter Details Date Type Department Care Team (Late st Contact Info) Description 05/01/2017 Scanned Document [facility] [address] [place] [address] Provider, Generic Social History Tobacco Use [...] Job Start Date Job End Date [facility] Not on file Not on file Not [...] on filedocumented in this encounter Care Teams Perforator Operator Oil Well Relationship Specialty Start Date End Date Patricia Mederos MD 100 [facility] 203 [place] [address] PCP - General 05/28/15 03/20/19 documented as of this encounter
--- OUTSIDE RECORDS SUMMARY | 2025-08-03 08:21 | XMS_ITS | Encounter Summary ---
Author Organization [facility] Address [address] [place] [address] Care Team Providers Care Vacuum Pan Operator Name Role Phone Patricia Meedros MD Primary Care Provider [phone] Encounter Details Date Type Department Care Team (Late st Contact Info) Description 03/08/2014 Scanned Document [address] [address] Provider, Generic Social History Tobacco [...] on filedocumented in this encounter Care Teams Vacuum Pan Operator Relationship Specialty Start Date End Date Patricia Mederos MD [address] [place] [address] [address] [place] [address] PCP - General 05/28/15 03/20/19 documented as of this encounter
--- OUTSIDE RECORDS SUMMARY | 2025-08-03 08:21 | XMS_ITS | Clinical Summary ---
Author Organization [facility] Address [address] [place] [address] Care Team Providers Care Clay Products Machine Operator Name Role Phone Unavailable Primary Care Provider Unavailabl e Allergies Active Allergy Reactions Criticality Noted Date Comments Other Unknown/Patient and Family Unable to Define Medium 11/09/2015 [place] nuts Penicillins Unknown/Patient and Family Unable to [...] Industry Job Start Date Job End Date [employer] [facility] Not on file Not on file [...] Most Recently Relevant to Health Maintenance [facility]
--- OUTSIDE RECORDS SUMMARY | 2025-08-03 08:21 | XMS_ITS | Encounter Summary ---
Author Organization [facility] Address [address] [place] [address] Care Team Providers Care Produce Weigher Name Role Phone Patricia Mederos MD Primary Care Provider [phone] Encounter Details Date Type Department Care Team ([facility] st Contact Info) Description 07/23/2018 Scanned Document [facility] 10 100 [facility] [address] [place] [address] Provider, Generic Social History Tobacco [...] on filedocumented in this encounter Care Teams Produce Weigher Relationship Specialty Start Date End Date Patricia Mederos MD 100 [facility] [address] [place] [phone] PCP - General 05/28/15 03/20/19 documented as of this encounter
--- OUTSIDE RECORDS SUMMARY | 2025-08-03 08:21 | XMS_ITS | Encounter Summary ---
Author Organization [facility] Address [address] [place] [address] Care Team Providers Care Nurses Educator Name Role Phone Patricia Mederos MD Primary Care Provider [phone] Encounter Details Date Type Department Care Team ([facility] st Contact Info) Description 07/23/2018 Scanned Document [facility] 10 100 [facility] [address] [place] [address] Provider, Generic Social History Tobacco [...] Industry Job Start Date Job End Date [facility] Not on file Not on file Not [...] on filedocumented in this encounter Care Teams Nurses Educator Relationship Specialty Start Date End Date Patricia Mederos MD 100 [facility] [address] [place] [phone] PCP - General 05/28/15 03/20/19 documented as of this encounter
--- OUTSIDE RECORDS SUMMARY | 2025-08-03 08:21 | XMS_ITS | Encounter Summary ---
Author Organization [facility] Address [address] [place] [address] Care Team Providers Care Log Grader Name Role Phone Patricia Mederos MD Primary Care Provider [phone] Encounter Details Date Type Department Care Team (Late st Contact Info) Description 02/10/2019 Scanned Document [facility] 10 100 [facility] 203 [place] [address] Provider, External, [address] [place] [address] Social History Tobacco Use Types Packs/Day Years [...] Job Start Date Job End Date [facility] [facility] Not on file Not on file Not on file documented as of this encounter Plan of Treatment Not on file documented as of this encounter Visit Diagnoses Not on filedocumented in this encounter Care Teams Log Grader Relationship Specialty Start Date End Date Patricia Mederos MD [address] [facility] [address] [place] [address] PCP - General 05/28/15 03/20/19 documented as of this encounter
--- OUTSIDE RECORDS SUMMARY | 2025-08-03 08:21 | XMS_ITS ---
Author Organization Unknown ENCOUNTERS Encounter Performer Location Date Diagnosis Diagnosis Status Outpatient PATIENCE [facility]OBMO [address] [id number] [facility] Outpatient PATIENCE [address] [id number] [facility] Outpatient PATIENCE [address] [phone] [id number] [facility] Outpatient [address] [id number] Outpatient BASIA LUJAN [address] [phone] [id number] Outpatient CLARA CHAUDHARI [address] [phone] [id number] [facility] Outpatient [address] [id number] [id number] Outpatient [address] [phone] [id number] Outpatient PATIENCE [address] [id number] [facility] Outpatient PATIENCE [address] [phone] [id number] [facility] Outpatient [address] [id number] [facility] Outpatient PATIENCE [address] [id number] [facility] Outpatient PATIENCE [address] [phone] [id number] [facility] Outpatient PATIENCE [address] [phone] [id number] [facility] Emergency DEDE GARCIAS [address] [phone] [id number] [facility] Outpatient [address] [phone] [id number] *Note: Encounters from your own facility or health system may be excluded. Allergies, Adverse Reactions, Alerts Allergen Type Severity Identification Date Medications Name Date Quantity Days Supplied GPI Number
[2025-08-03 11:41] LABS: Alanine Aminotransferase 18 U/L (0-31); Albumin Level 4.4 g/dL (3.5-5.0); Alkaline Phosphatase 67 U/L (39-117); Aspartate Amino Transferase 25 U/L (5-31); Total Protein 7.1 g/dL (6.5-8.0)
== END 2025-08-03 08:03 | disposition home or self-care (01) ==
LOC: HO.WFDLDS 08:02
PROVIDERS: Visit Provider Physician Assistant
DX: R79.89 Other specified abnormal findings of blood chemistry (principal)
CPT/HCPCS: 36415; 80076